=== PATIENT | male | born 1945 | race Caucasian/White ===

== ENCOUNTER 2019-08-10 09:39 | Day surgery (SDC) | payer OTHER ==
[~2019-08-10] VITALS: Ht 170.2 cm; Wt 82.3 kg
[2019-08-10] VITALS (10 sets, daily range): BP systolic 102–149; BP diastolic 54–87
[2019-08-10] MEDS ORDERED: normal saline 1,000 ML IV SCH (10:00)
[2019-08-10] MEDS ORDERED: LORazepam 0.5 MG tablet PO PRN (10:00)
[2019-08-10] MEDS ORDERED: diphenhydrAMINE 25mg capsule PO PRN (10:00)
[2019-08-10 10:57] LABS: BASOPHILS # (AUTO) 0.1 X10'3 (0-0.2); BASOPHILS % (AUTO) 0.8 % (0-1); EOSINOPHILS # (AUTO) 0.2 X10'3 (0-0.9); EOSINOPHILS % (AUTO) 3.2 % (0-6); HEMATOCRIT 42.2 % (42.0-52.0); HEMOGLOBIN 14.3 g/dl (14.0-17.9); LYMPHOCYTES # (AUTO) 1.3 X10'3 (1.1-4.8); LYMPHOCYTES % (AUTO) 18.8 % (21-51); MEAN CORPUSCULAR HGB CONC 33.7 g/dL (33.0-36.5); MEAN CORPUSCULAR VOLUME 89.1 FL (78-98); MEAN PLATELET VOLUME 8.7 FL (7.4-10.4); MONOCYTES # (AUTO) 0.7 X10'3 (0-0.9); MONOCYTES % (AUTO) 10.1 % (2-12); NEUTROPHILS # (AUTO) 4.6 X10'3 (1.8-7.7); NEUTROPHILS % (AUTO) 67.1 % (42-75); PLATELET COUNT 190 X10'3 (140-440); RED BLOOD COUNT 4.74 X10'6 (4.70-6.10); RED CELL DISTRIBUTION WIDTH 13.7 % (11.5-14.5); WHITE BLOOD COUNT 6.9 X10'3 (4.5-11.0)
[2019-08-10 11:07] LABS: ALBUMIN 3.6 G/DL (3.4-5.0); ANION GAP 7 (8-16); BLOOD UREA NITROGEN 24 MG/DL (7-18); BUN/CREATININE RATIO 21.8 (5.4-32.0); CALCIUM 8.8 MG/DL (8.5-10.1); CHLORIDE 107 MMOL/L (99-107); GLUCOSE 114 MG/DL (70-104); POTASSIUM 4.4 MMOL/L (3.5-5.1); SODIUM 140 MMOL/L (135-145); TOTAL CARBON DIOXIDE 26.1 MMOL/L (24-32); eGFR 65 ML/MIN
[2019-08-10] MEDS ORDERED: LEVO50TA PO (11:34)
[2019-08-10] MEDS ORDERED: ASPI-1265 PO (11:34)
[2019-08-10] MEDS ORDERED: OMEP40CA13 PO (11:34)
[2019-08-10] MEDS ORDERED: NITR0.4T51 SL (11:34)
[2019-08-10] MEDS ORDERED: CARV3.1289 PO (11:34)
[2019-08-10] MEDS ORDERED: APIX5TAB3 PO (11:34)
[2019-08-10] MEDS ORDERED: SPIR25TA5 PO (11:34)
[2019-08-10] MEDS ORDERED: SACU1TAB4 PO (11:34)
[2019-08-10] MEDS ORDERED: AMIO200T62 PO (11:34)
[2019-08-10] MEDS ORDERED: ROSU10TA28 PO (11:34)
[2019-08-10] MEDS ORDERED: UBID10CA9 PO (11:36)
[2019-08-10] MEDS ORDERED: pneumococcal 23-VAL P-sac vacc 25 mcg/0.5ml vial IMVAC ONE (12:00)
[2019-08-10] MEDS ORDERED: midazolam 2 mg/2 ml injection ONE (14:14)
[2019-08-10] MEDS ORDERED: LIDOcaine 1% (10mg/ml)w/preservative injection 20ml MDV ONE (14:15)
[2019-08-10] MEDS ORDERED: iohexol 350MG/ML 100ml bottle IV ONE ×2 (14:15→14:55)
[2019-08-10] MEDS ORDERED: fentaNYL/PF 50MCG/1 ML 2ML syringe ONE (14:15)
[2019-08-10] MEDS ORDERED: nitroGLYCERIN-Tridil 50MG/D5W 250 ML IV ONE (14:18)
[2019-08-10] MEDS ORDERED: verapamil 2.5 mg/ml inj IV ONE (14:18)
[2019-08-10] MEDS ORDERED: heparin 1,000unit/ml 10ml vial 10 ML ONE (14:18)
--- NOTE | 2019-08-10 15:35 | NUR ---
Rec patient from [facility] [employer] via [facility] white. HR remains in low 40's as per prior to heart cath. Awake, drowsy. Asking for something to drink. Band to R wrist with circulation intact, without numbness, bleeding or hematoma. Md orders noted.
== END 2019-08-10 19:45 | disposition home or self-care (01) ==
LOC: SSTAY O 09:39
PROVIDERS: ATTEND Internal Medicine Interventional Cardiology
DX: I25.119 Atherosclerotic heart disease of native coronary artery with unspecified angina pectoris (principal); I48.92 Unspecified atrial flutter; E78.5 Hyperlipidemia, unspecified; I25.2 Old myocardial infarction; G47.33 Obstructive sleep apnea (adult) (pediatric); K21.9 Gastro-esophageal reflux disease without esophagitis; Z88.8 Allergy status to other drugs, medicaments and biological substances; I25.5 Ischemic cardiomyopathy; I10 Essential (primary) hypertension; Z79.899 Other long term (current) drug therapy; Z79.82 Long term (current) use of aspirin; Z85.46 Personal history of malignant neoplasm of prostate; Z88.2 Allergy status to sulfonamides; Z23 Encounter for immunization
CPT/HCPCS: 36415; 80048; 85025; 85610; 90732; 93005; 93458; 93571; 99152; 99153; C1769; C1894; J1644; J2001; J2250; J3010; J7030; Q0163; Q9967; A4620; A5120; A6258; J3490